=== PATIENT | male | born 1960 | race Caucasian/White ===

== ENCOUNTER 2019-06-28 12:39 | Day surgery (SDC) | payer MEDICAID ==
[2019-06-20 11:05] LABS: BASOPHILS # (AUTO) 0.1 X10'3 (0-0.2); BASOPHILS % (AUTO) 1.2 % (0-1); EOSINOPHILS # (AUTO) 0.2 X10'3 (0-0.9); EOSINOPHILS % (AUTO) 1.9 % (0-6); LYMPHOCYTES # (AUTO) 1.5 X10'3 (1.1-4.8); LYMPHOCYTES % (AUTO) 16.4 % (21-51); MEAN CORPUSCULAR HGB CONC 34.3 g/dL (33.0-36.5); MEAN CORPUSCULAR VOLUME 90.5 FL (78-98); MEAN PLATELET VOLUME 7.2 FL (7.4-10.4); MONOCYTES # (AUTO) 1.2 X10'3 (0-0.9); MONOCYTES % (AUTO) 12.5 % (2-12); NEUTROPHILS # (AUTO) 6.4 X10'3 (1.8-7.7); PRE OP HEMATOCRIT 45.4 % (42.0-52.0); PRE OP HEMOGLOBIN 15.6 g/dL (14.0-17.9); PRE OP PLATELET COUNT 361 X10'3 (140-440); RED BLOOD COUNT 5.02 X10'6 (4.70-6.10)
[2019-06-20 11:22] LABS: ALBUMIN 3.4 G/DL (3.4-5.0); ALBUMIN/GLOBULIN RATIO 0.8 (1.1-1.5); ALKALINE PHOSPHATASE 89 IU/L (46-116); BLOOD UREA NITROGEN 14 MG/DL (7-18); BUN/CREATININE RATIO 20.6 (5.4-32.0); CALCIUM 8.7 MG/DL (8.5-10.1); CHLORIDE 103 MMOL/L (99-107); CREATININE 0.68 MG/DL (0.60-1.10); PRE OP ALT 20 U/L (30-65); PRE OP ANION GAP 6 (8-16); PRE OP AST 11 U/L (10-37); PRE OP BILIRUB, TOTAL 0.4 MG/DL (0.0-1.0); PRE OP GLUCOSE 96 MG/DL (70-104); PRE OP POTASSIUM 4.8 MMOL/L (3.4-5.1); PRE OP SODIUM 140 MMOL/L (135-145); TOTAL CARBON DIOXIDE 30.8 MMOL/L (24-32); TOTAL PROTEIN 7.6 G/DL (6.4-8.2); eGFR > 90 ML/MIN
[2019-06-28] VITALS (9 sets, daily range): BP systolic 124–156; BP diastolic 70–90
[~2019-06-28] VITALS: Ht 177.8 cm; Wt 89.8 kg
[~2019-06-28 12:39] MED LIST: BUPR1PAT9 TOP; GABA-530 PO; LISI-600 PO; UMEC1DIS INH; VARE1TAB21 PO; albuterol 2.5 MG/3 ML nebule NEB ONE; cefazolin/dext.iso 2gm/100 ML IV ONE; famotidine 20mg tablet PO ONE; ringers solution, lacted 1,000 ML IV SCH; vancomycin inj 1,500 MG in normal saline 300ml IV soln IV ONE; vancomycin/NS 1 GM ADD-VANTAGE 250 ML X 1 DOSE IV ONE; vancomycin/NS 500MG ADD-VANT 100 ML IV ONE
[2019-06-28] MEDS ORDERED: ringers solution, lacted 1,000 ML IV SCH (14:13)
[2019-06-28] MEDS ORDERED: ondansetron/PF 4mg/2ml inj IV PRN (14:15)
[2019-06-28] MEDS ORDERED: proCHLORperazine 10 MG/2 ml inj IV PRN (14:15)
[2019-06-28] MEDS ORDERED: meperidine/PF 25mg/ml syringe IV PRN ×3 (14:15)
[2019-06-28] MEDS ORDERED: triamcinolone acetonide 40mg/ml inj ONE (14:15)
[2019-06-28] MEDS ORDERED: morphine 4 MG/ML inj SYRINge IV PRN ×2 (14:15)
[2019-06-28] MEDS ORDERED: BUPIVAcaine/PF 2.5 mg/ml (0.25%) 30ml vial ONE (14:15)
[2019-06-28] MEDS ORDERED: sevoflurane 250ml liquid IH ONE (14:34)
[2019-06-28] MEDS ORDERED: fentaNYL/PF 50MCG/1 ML 2ML syringe ONE (14:38)
[2019-06-28] MEDS ORDERED: midazolam 2 mg/2 ml injection ONE (14:39)
[2019-06-28] MEDS ORDERED: propofol inj 20 ML IV ONE (15:14)
[2019-06-28] MEDS ORDERED: dexamethasone sod phosphate 4mg/ml inj. ONE (15:14)
[2019-06-28] MEDS ORDERED: acetaminophen 1,000mg/100ml IV 100 ML IV ONE (15:16)
--- NOTE | 2019-06-28 15:28 | NUR ---
Received from OR via [facility], accompanied by Anesthesiologist DR MAYFIELD and report given by Anesthesiologist. PT VERY DROWSY, NO S/S OF DISTRESS/DISCOMFORT, LEFT KNEE W/DRSG AND BIAS WRAP COVERING CDI. Addendum: 06/28/19 at 1635 by Tamika Muhammad RN Amended: Links added.
[2019-06-28] MEDS ORDERED: HYDROcodone/acetaminophen 10/325mg tab PO ONE (16:30)
--- NOTE | 2019-06-28 16:48 | NUR ---
D/C INSTRUCTIONS GIVEN AND GONE OVER W/PT WHO VERBALIZES UNDERSTANDING, PT D/CD TO HOME VIA W/C TO PRIVATE VEHICLE W/O INCIDENT. Addendum: 06/28/19 at 1701 by Tamika Muhammad RN Amended: Links added.
== END 2019-06-28 16:48 | disposition home or self-care (01) ==
LOC: PAS 12:39
PROVIDERS: ATTEND Orthopaedic Surgery
DX: S83.232A Complex tear of medial meniscus, current injury, left knee, initial encounter (principal); S83.282A Other tear of lateral meniscus, current injury, left knee, initial encounter; M94.262 Chondromalacia, left knee; M17.0 Bilateral primary osteoarthritis of knee; E66.8 Other obesity; Z68.28 Body mass index [BMI] 28.0-28.9, adult; J44.9 Chronic obstructive pulmonary disease, unspecified; I10 Essential (primary) hypertension; F17.210 Nicotine dependence, cigarettes, uncomplicated; G89.29 Other chronic pain; Z98.890 Other specified postprocedural states; Z72.89 Other problems related to lifestyle; X58.XXXA Exposure to other specified factors, initial encounter; Y93.89 Activity, other specified; Y92.89 Other specified places as the place of occurrence of the external cause; Y99.8 Other external cause status
CPT/HCPCS: 29873; 29879; 29881; 36415; 71046; 80053; 82948; 85025; 93005; 94060; 94640; 94760; J0131; J1100; J2250; J2704; J3010; J3301; J3370; J3490; A4215; A4618; A6250; A6449; J7120

== ENCOUNTER 2019-08-13 01:07 | Inpatient (IN) | payer MEDICAID ==
[~2019-08-13] VITALS: Ht 177.8 cm; Wt 94.5 kg
[~2019-08-13 01:07] MED LIST changes: -albuterol 2.5 MG/3 ML nebule NEB ONE; -cefazolin/dext.iso 2gm/100 ML IV ONE; -famotidine 20mg tablet PO ONE; -ringers solution, lacted 1,000 ML IV SCH; -vancomycin inj 1,500 MG in normal saline 300ml IV soln IV ONE; -vancomycin/NS 1 GM ADD-VANTAGE 250 ML X 1 DOSE IV ONE; -vancomycin/NS 500MG ADD-VANT 100 ML IV ONE
[2019-08-13] MEDS ORDERED: acetaminophen 325mg tablet PO ONE (01:15)
[2019-08-13] MEDS ORDERED: CefTRIAXone 2gm/D5W 50ml 50 ML IV ONE (01:45)
[2019-08-13] MEDS ORDERED: normal saline 1000ML IV soln IV ONE (01:45)
[2019-08-13 01:58] LABS: BASOPHILS # (AUTO) 0.1 X10'3 (0-0.2); BASOPHILS % (AUTO) 0.7 % (0-1); EOSINOPHILS # (AUTO) 0.1 X10'3 (0-0.9); HEMOGLOBIN 15.1 g/dl (14.0-17.9); LYMPHOCYTES # (AUTO) 1.6 X10'3 (1.1-4.8); LYMPHOCYTES % (AUTO) 12.5 % (21-51); MEAN CORPUSCULAR HEMOGLOBIN 30.4 PG (27.0-31.0); MEAN CORPUSCULAR HGB CONC 34.5 g/dL (33.0-36.5); MEAN CORPUSCULAR VOLUME 88.1 FL (78-98); MEAN PLATELET VOLUME 7.7 FL (7.4-10.4); MONOCYTES # (AUTO) 1.8 X10'3 (0-0.9); MONOCYTES % (AUTO) 14.8 % (2-12); NEUTROPHILS # (AUTO) 8.9 X10'3 (1.8-7.7); PLATELET COUNT 316 X10'3 (140-440); RED BLOOD COUNT 4.99 X10'6 (4.70-6.10); RED CELL DISTRIBUTION WIDTH 13.5 % (11.5-14.5); WHITE BLOOD COUNT 12.5 X10'3 (4.5-11.0)
[2019-08-13 02:24] LABS: ALANINE AMINOTRANSFERASE 32 U/L (12-78); ALBUMIN 3.1 G/DL (3.4-5.0); ALBUMIN/GLOBULIN RATIO 0.7 (1.1-1.5); ALKALINE PHOSPHATASE 108 IU/L (46-116); ANION GAP 9 (8-16); ASPARTATE AMINO TRANSFERASE 20 U/L (10-37); BILIRUBIN,TOTAL 0.3 MG/DL (0.1-1.0); BLOOD UREA NITROGEN 14 MG/DL (7-18); BUN/CREATININE RATIO 15.4 (5.4-32.0); CALCIUM 8.3 MG/DL (8.5-10.1); CHLORIDE 99 MMOL/L (99-107); CREATININE 0.91 MG/DL (0.60-1.10); GLUCOSE 103 MG/DL (70-104); POTASSIUM 4.2 MMOL/L (3.5-5.1); SODIUM 135 MMOL/L (135-145); TOTAL PROTEIN 7.3 G/DL (6.4-8.2); eGFR 86 ML/MIN
[2019-08-13 02:25] LABS: PARTIAL THROMBOPLASTIN TIME 31 SECONDS (22-32)
[2019-08-13 02:40] LABS: CLARITY,URINE CLOUDY (Clear); COLOR,URINE YELLOW (Yellow); GLUCOSE, URINE NEGATIVE (Neg); KETONES,URINE NEGATIVE (Neg); LEUKOCYTE ESTERASE ,URINE LARGE (Neg); NITRITES, URINE POSITIVE (Neg); OCCULT BLOOD,URINE TRACE-INTACT (Neg); PROTEIN,URINE NEGATIVE (Neg)
[2019-08-13 02:48] LABS: UA COLLECTION TYPE URINAL
[2019-08-13 02:49] LABS: BACTERIA,URINE 1+ /HPF (Neg); RBC,URINE 0-2 /HPF (0-2); SQUAMOUS EPITHELIAL CELL,UR FEW /LPF (FEW); WBC CLUMPS,URINE FEW /HPF (NEGATIVE); WBC,URINE TNTC /HPF (0-4)
[2019-08-13] MEDS ORDERED: doxycycline inj 100 MG in normal saline 100ml IV soln 100 ML IV SCH (03:55)
[2019-08-13] MEDS ORDERED: normal saline 1000ML IV soln IVB ONE (03:55)
[2019-08-13] MEDS ORDERED: acetaminophen 325mg tablet PO PRN (04:30)
[2019-08-13] MEDS ORDERED: magnesium 2GM in 50ml NS 50 ML IV PRN (04:30)
[2019-08-13] MEDS ORDERED: magnesium 4gm in 100ml NS 100 ML IV PRN (04:30)
[2019-08-13] MEDS ORDERED: magnesium Cl slow-release 64mg tablet PO PRN (04:30)
[2019-08-13] MEDS ORDERED: potassium CL 10mEq/100ml bag 100 ML IV PRN ×2 (04:30)
[2019-08-13] MEDS ORDERED: potassium Cl 20 mEq SR tablet PO PRN ×2 (04:30)
[2019-08-13] MEDS ORDERED: ondansetron/PF 4mg/2ml inj IV PRN (04:30)
[2019-08-13] MEDS ORDERED: magnesium hydroxide 30ml (MOM) UD suspension PO PRN (04:30)
[2019-08-13] MEDS ORDERED: mag hydrox/Alum hydrox/simeth 30ml oral suspension PO PRN (04:30)
--- NOTE | 2019-08-13 04:36 | NUR ---
PT HAD 393 IN BLADDER PER BLADDER SCANNER. PT DENIED URGE TO VOID.
--- NOTE | 2019-08-13 05:31 | NUR ---
Received patient report from ER nurse Joy MILLER. Will assume patient care.
--- NOTE | 2019-08-13 05:34 | NUR ---
Per Report from Joy patient bladder scan show 400 in bladder, patient attempted to void and nurse did a post residual bladder scan that show 217 in bladder prior to patient arriving on floor.
[2019-08-13 05:50] VITALS: BP 102/53
--- NOTE | 2019-08-13 05:50 | NUR ---
Patient arrived to the floor @0550. Patient settled in room. Call light in reach, AOx4.
[2019-08-13] MEDS: normal saline 1000ml 1,000 ML IV SCH ×3 (06:04→20:58)
[2019-08-13] MEDS: tamsulosin 0.4mg capsule PO SCH ×2 (06:04→20:53)
--- NOTE | 2019-08-13 06:43 | NUR ---
Problems reprioritized. Patient report given, questions answered & plan of care reviewed with Shaye MILLER.
--- NOTE | 2019-08-13 06:52 | NUR ---
Patient in room [facility]. I have received report from Joselyn MILLER and had the opportunity to ask questions and assume patient care.
[2019-08-13 08:00] VITALS: BP 98/49
[2019-08-13] MEDS: (Umeclidinium Brm/Vilanterol Tr (Anoro Ellipta 62.5-25 Mcg INH) 1 PUFF) IH SCH (08:00)
[2019-08-13] MEDS: K and/or MAG REPLACEMENT MC SCH ×2 (08:00→20:00)
[2019-08-13] MEDS: heparin, porcine 5000 units/ml vial SQ SCH ×2 (08:58→20:54)
[2019-08-13] MEDS: gabapentin 100mg capsule PO SCH ×3 (08:59→20:53)
[2019-08-13] MEDS: BUPRENORPHINE 15 MCG/HR TOP SCH (10:00)
[2019-08-13] MEDS ORDERED: methylPREDNISolone sod succ 125mg/2ml vial IV ONE (10:30)
[2019-08-13] MEDS ORDERED: ipratropium/albuterol 3ml nebule NEB PRN (10:30)
[2019-08-13 11:00] VITALS: BP 122/64
[2019-08-13] MEDS: ipratropium/albuterol 3ml nebule NEB SCH ×4 (12:45→23:00)
[2019-08-13] MEDS: methylPREDNISolone sod succ 125mg/2ml vial IV SCH ×2 (14:39→20:53)
[2019-08-13 20:00] VITALS: BP 135/74
[2019-08-13] MEDS: DOXYCYCLINE 100MG CAPSULE PO SCH (20:53)
[2019-08-14] VITALS: BP 130/76
[2019-08-14] MEDS ORDERED: CefTRIAXone/D5W-Rocephin 1gm 50 ML IV SCH (01:00)
[2019-08-14] MEDS: methylPREDNISolone sod succ 125mg/2ml vial IV SCH ×3 (01:37→15:14)
[2019-08-14 05:10] LABS: BASOPHILS % (AUTO) 0.1 % (0-1); EOSINOPHILS % (AUTO) 0 % (0-6); HEMATOCRIT 38.4 % (42.0-52.0); HEMOGLOBIN 12.9 g/dl (14.0-17.9); LYMPHOCYTES # (AUTO) 0.8 X10'3 (1.1-4.8); MEAN CORPUSCULAR HEMOGLOBIN 30.1 PG (27.0-31.0); MEAN CORPUSCULAR HGB CONC 33.5 g/dL (33.0-36.5); MEAN CORPUSCULAR VOLUME 89.7 FL (78-98); MEAN PLATELET VOLUME 7.5 FL (7.4-10.4); MONOCYTES # (AUTO) 0.4 X10'3 (0-0.9); MONOCYTES % (AUTO) 5.6 % (2-12); NEUTROPHILS # (AUTO) 6.7 X10'3 (1.8-7.7); NEUTROPHILS % (AUTO) 84.3 % (42-75); PLATELET COUNT 296 X10'3 (140-440); RED BLOOD COUNT 4.28 X10'6 (4.70-6.10); RED CELL DISTRIBUTION WIDTH 13.7 % (11.5-14.5); WHITE BLOOD COUNT 7.9 X10'3 (4.5-11.0)
[2019-08-14 05:29] LABS: ALANINE AMINOTRANSFERASE 28 U/L (12-78); ALBUMIN 2.5 G/DL (3.4-5.0); ALBUMIN/GLOBULIN RATIO 0.7 (1.1-1.5); ALKALINE PHOSPHATASE 81 IU/L (46-116); ANION GAP 9 (8-16); ASPARTATE AMINO TRANSFERASE 14 U/L (10-37); BILIRUBIN,TOTAL 0.1 MG/DL (0.1-1.0); BLOOD UREA NITROGEN 9 MG/DL (7-18); BUN/CREATININE RATIO 15.8 (5.4-32.0); CALCIUM 8.2 MG/DL (8.5-10.1); CHLORIDE 105 MMOL/L (99-107); CREATININE 0.57 MG/DL (0.60-1.10); GLUCOSE 180 MG/DL (70-104); MAGNESIUM 2.1 MG/DL (1.5-2.4); POTASSIUM 4.3 MMOL/L (3.5-5.1); SODIUM 141 MMOL/L (135-145); TOTAL CARBON DIOXIDE 26.8 MMOL/L (24-32); TOTAL PROTEIN 6.2 G/DL (6.4-8.2); eGFR > 90 ML/MIN
--- NOTE | 2019-08-14 06:31 | NUR ---
Problems reprioritized. Patient report given, questions answered & plan of care reviewed with ANGELA Cr.
--- NOTE | 2019-08-14 06:47 | NUR ---
Patient in room [facility]. I have received report from Fauzia Holm RN and had the opportunity to ask questions and assume patient care.
[2019-08-14] MEDS: normal saline 1000ml 1,000 ML IV SCH (07:47)
[2019-08-14] MEDS: DOXYCYCLINE 100MG CAPSULE PO SCH (07:48)
[2019-08-14] MEDS: gabapentin 100mg capsule PO SCH ×2 (07:48→15:14)
[2019-08-14] MEDS: heparin, porcine 5000 units/ml vial SQ SCH (07:49)
[2019-08-14 08:00] VITALS: BP 113/65
[2019-08-14] MEDS: K and/or MAG REPLACEMENT MC SCH (08:00)
[2019-08-14] MEDS ORDERED: lisinopril 20mg tablet PO SCH (08:00)
--- NOTE | 2019-08-14 08:18 | NUR ---
Saw patient 08/[address] Devlin and counseled about the pulmonary rehab program, explaining the class/gym structure and goals of the program, and advising patient that if interested to have his PCP or knitted cloth examiner contact the pulmonary rehab program via phone or fax as laid out in the pulmonary rehabilitation pamphlet which was left with the patient. the patient showed understanding and agreed to give it thought.
[2019-08-14] MEDS: ipratropium/albuterol 3ml nebule NEB SCH ×2 (08:46→11:00)
[2019-08-14 11:00] VITALS: BP 137/75
[2019-08-14] MEDS: (Umeclidinium Brm/Vilanterol Tr (Anoro Ellipta 62.5-25 Mcg INH) 1 PUFF) IH SCH (11:42)
[2019-08-14] MEDS: BUPRENORPHINE 15 MCG/HR TOP SCH (11:42)
[2019-08-14] MEDS ORDERED: LEVO750T21 PO (15:10)
--- NOTE | 2019-08-14 17:12 | NUR ---
Pt DC to home with family. Pt A & O in no distress. Pt and family verbalize understanding of all DC orders and understand the importance of following with Dr. Tang and PCP within the next two weeks. Pt's meds were efaxed to [facility] in [place]. Pt was wheeled out to the front and his and son drove him home.
[2019-08-14] MEDS ORDERED: lactobacillus rhamnosus 10,000 MMU CELLS/CAPSULE PO SCH (20:00)
== END 2019-08-14 17:15 | disposition home or self-care (01) | DRG 463 ==
LOC: ER 01:08 → ED HOLD 04:42 → SUR 3N 05:53
PROVIDERS: ADMIT Internal Medicine; ATTEND Family Medicine
DX: N39.0 Urinary tract infection, site not specified (principal); J96.10 Chronic respiratory failure, unspecified whether with hypoxia or hypercapnia; Z99.81 Dependence on supplemental oxygen; G89.29 Other chronic pain; I10 Essential (primary) hypertension; N44.2 Benign cyst of testis; F17.210 Nicotine dependence, cigarettes, uncomplicated; B96.20 Unspecified Escherichia coli [E. coli] as the cause of diseases classified elsewhere; J44.9 Chronic obstructive pulmonary disease, unspecified; M54.9 Dorsalgia, unspecified; M54.5 Low back pain; L03.90 Cellulitis, unspecified; N50.82 Scrotal pain; N50.89 Other specified disorders of the male genital organs; Z80.1 Family history of malignant neoplasm of trachea, bronchus and lung; Z83.3 Family history of diabetes mellitus; Z79.899 Other long term (current) drug therapy
CPT/HCPCS: 36415; 71045; 74176; 76870; 80053; 81001; 83605; 83735; 84145; 85025; 85610; 85730; 87040; 87077; 87081; 87088; 87186; 94640; 94667; 94760; 96365; 99285; G0378; J0696; J1644; J2930; J3490; J7030

== ENCOUNTER 2024-12-22 12:57 | Emergency (ER) | payer MEDICAID ==
[~2024-12-22] VITALS: Ht 185.4 cm; Wt 97.0 kg
[~2024-12-22 12:57] MED LIST changes: +ASPI-1071 PO; +ATOR20TA66 PO; +CLOP75TA34 PO; -GABA-530 PO; +GABA-532 PO; -LISI-600 PO; +LISI20TA28 PO; -UMEC1DIS INH; -VARE1TAB21 PO
[2024-12-22 12:58] VITALS: TEMP 98.3
[2024-12-22 13:25] LABS: BASOPHILS # (AUTO) 0.1 X10'3 (0-0.2); BASOPHILS % (AUTO) 0.8 % (0-1); EOSINOPHILS # (AUTO) 0.2 X10'3 (0-0.9); EOSINOPHILS % (AUTO) 2.3 % (0-6); HEMATOCRIT 48.6 % (42.0-52.0); LYMPHOCYTES # (AUTO) 1.5 X10'3 (1.1-4.8); LYMPHOCYTES % (AUTO) 15.2 % (21-51); MEAN CORPUSCULAR HEMOGLOBIN 28.9 PG (27.0-31.0); MEAN CORPUSCULAR HGB CONC 32.9 g/dL (33.0-36.5); MEAN CORPUSCULAR VOLUME 87.8 FL (78-98); MEAN PLATELET VOLUME 7.8 FL (7.4-10.4); MONOCYTES # (AUTO) 1.3 X10'3 (0-0.9); MONOCYTES % (AUTO) 13.2 % (2-12); NEUTROPHILS # (AUTO) 6.9 X10'3 (1.8-7.7); NEUTROPHILS % (AUTO) 68.5 % (42-75); PLATELET COUNT 272 X10'3 (140-440); RED BLOOD COUNT 5.54 X10'6 (4.70-6.10); RED CELL DISTRIBUTION WIDTH 14.5 % (11.5-14.5); WHITE BLOOD COUNT 10.1 X10'3 (4.5-11.0)
[2024-12-22 14:08] LABS: ALANINE AMINOTRANSFERASE 29 U/L (12-78); ALBUMIN 3.6 G/DL (3.4-5.0); ALKALINE PHOSPHATASE 100 IU/L (46-116); ANION GAP 10 (8-16); ASPARTATE AMINO TRANSFERASE 27 U/L (10-37); BILIRUBIN,TOTAL 0.6 MG/DL (0.1-1.0); BLOOD UREA NITROGEN 9 MG/DL (7-18); BUN/CREATININE RATIO 14.3 (10.0-20.0); CALCIUM 8.6 MG/DL (8.5-10.1); CHLORIDE 101 MMOL/L (99-107); CREATININE 0.63 MG/DL (0.60-1.10); GLUCOSE 102 MG/DL (70-104); POTASSIUM 4.1 MMOL/L (3.5-5.1); SODIUM 140 MMOL/L (135-145); TOTAL CARBON DIOXIDE 28.8 MMOL/L (24-32); TOTAL PROTEIN 7.1 G/DL (6.4-8.2); eCRCL 137 ML/MIN; eGFR > 90 ML/MIN
[2024-12-22 14:13] VITALS: BP 135/85; PULSE 82; RESP 16; O2SAT 94
[2024-12-22 14:17] LABS: PRO BRAIN NATRIURETIC PEPTIDE 34 PG/ML (0-125)
[2024-12-22] MEDS ORDERED: ATOR-429 PO (14:39)
[2024-12-22] MEDS ORDERED: ASPI-1265 PO (14:39)
[2024-12-22] MEDS ORDERED: LISI20TA28 PO (14:39)
[2024-12-22] MEDS ORDERED: CLOP75TA33 PO (14:39)
== END 2024-12-22 18:53 | disposition home or self-care (01) ==
LOC: ER 12:58
DX: I20.9 Angina pectoris, unspecified (principal); I10 Essential (primary) hypertension; J44.9 Chronic obstructive pulmonary disease, unspecified; F17.200 Nicotine dependence, unspecified, uncomplicated; Z88.5 Allergy status to narcotic agent; Z98.890 Other specified postprocedural states; Z79.82 Long term (current) use of aspirin
CPT/HCPCS: 36415; 71045; 80053; 83880; 84484; 85025; 93005; 99285